=== PATIENT | female | born 1945 | race Native Hawaiian/Other Pacific Islander ===

== ENCOUNTER 2017-03-10 08:30 | Outpatient (CLI) | payer OTHER ==
[2017-03-10 10:04] LABS: PLATELET COUNT 242 K/uL (152-353)
[2017-03-10 11:58] LABS: POTASSIUM 4.2 mmol/L (3.6-5.2)
== END 2017-03-10 19:19 | disposition home or self-care (01) ==
LOC: LABW 08:30
PROVIDERS: Internal Medicine
DX: E11.9 Type 2 diabetes mellitus without complications (principal)
CPT/HCPCS: 36415; 80053; 80061; 81000; 82043; 82570; 83036; 84439; 84443; 85027

== ENCOUNTER 2017-07-08 10:02 | Outpatient (CLI) | payer OTHER | END 2017-07-08 11:05 | disposition home or self-care (01) | LOC: RAD 10:02 | DX: M81.0 Age-related osteoporosis without current pathological fracture (principal) ==

== ENCOUNTER → 2017-08-27 08:30 | Outpatient (CLI) | payer OTHER ==
[~2017-08-27 08:30] MED LIST: DICL75TA4 PO; EQ ASPIRIN LOW81 MG PO; GLIM4TAB PO; LEVO-T50 MCG PO; LOVASTATIN20 MG OR; NEURONTIN 100M100 MG OR; SM STOOL SOFTE PO; [UNRECOGNIZED DRUG - OTHER] OR
[2017-08-27 09:21] LABS: PLATELET COUNT 278 K/uL (152-353)
[2017-08-27 09:39] LABS: POTASSIUM 4.2 mmol/L (3.6-5.2)
== END | disposition home or self-care (01) ==
LOC: LABW 08:30
PROVIDERS: Internal Medicine
DX: E11.9 Type 2 diabetes mellitus without complications (principal); R82.99 Other abnormal findings in urine
CPT/HCPCS: 36415; 80053; 80061; 81000; 83036; 84443; 85027; 87077; 87086; 87088; 87186

== ENCOUNTER 2017-10-13 08:47 | Inpatient (IN) | payer OTHER ==
[~2017-10-13] VITALS: Ht 157.5 cm; Wt 70.1 kg
[2017-10-13 13:19] LABS: PLATELET COUNT 392 K/uL (152-353)
[2017-10-13 13:43] VITALS: BP 146/61; TEMP 98.6; Ht 157.5 cm; Wt 70.1 kg
[2017-10-13 13:44] LABS: POTASSIUM 4.1 mmol/L (3.6-5.2); SODIUM 131 mmol/L (136-145)
[2017-10-13] MEDS ORDERED: EQ ASPIRIN LOW81 MG PO (14:48)
[2017-10-13] MEDS ORDERED: NEURONTIN 100M100 MG OR (14:50)
[2017-10-13] MEDS ORDERED: LEVO-T50 MCG PO (14:50)
[2017-10-13] MEDS ORDERED: GLIM4TAB PO (14:52)
[2017-10-13] MEDS ORDERED: LOVASTATIN20 MG OR (14:53)
[2017-10-13] MEDS ORDERED: DICL75TA4 PO (14:54)
[2017-10-13] MEDS ORDERED: [UNRECOGNIZED DRUG - OTHER] OR (14:55)
[2017-10-13] MEDS ORDERED: SM STOOL SOFTE PO (14:56)
[2017-10-13 16:00] VITALS: BP 132/56; TEMP 99.7
[2017-10-13 20:00] VITALS: BP 119/41; TEMP 99.1
[2017-10-14] VITALS (19 sets, daily range): BP systolic 119–181; BP diastolic 43–89; TEMP 98.1–98.8
[2017-10-14 08:30] LABS: PLATELET COUNT 383 K/uL (152-353)
[2017-10-15] VITALS (24 sets, daily range): BP systolic 122–172; BP diastolic 49–87; TEMP 97.7–99
[2017-10-15 05:02] LABS: PLATELET COUNT 375 K/uL (152-353)
[2017-10-15 05:15] LABS: POTASSIUM 4.9 mmol/L (3.6-5.2)
[2017-10-16] VITALS (19 sets, daily range): BP systolic 128–186; BP diastolic 63–96; TEMP 98–99
[2017-10-16 06:11] LABS: PLATELET COUNT 337 K/uL (152-353)
[2017-10-16 06:38] LABS: POTASSIUM 4.1 mmol/L (3.6-5.2)
[2017-10-17] VITALS (7 sets, daily range): BP systolic 139–170; BP diastolic 59–83; TEMP 97.9–98.2
[2017-10-17 08:09] LABS: PLATELET COUNT 302 K/uL (152-353)
[2017-10-17 09:03] LABS: POTASSIUM 3.7 mmol/L (3.6-5.2)
[2017-10-18 00:07] VITALS: BP 146/53; TEMP 98.1
[2017-10-18 05:01] LABS: PLATELET COUNT 330 K/uL (152-353)
[2017-10-18 05:30] LABS: POTASSIUM 3.5 mmol/L (3.6-5.2)
[2017-10-18 08:00] VITALS: BP 154/70; TEMP 98.2
[2017-10-18 12:00] VITALS: BP 140/61; TEMP 98
[2017-10-18 16:00] VITALS: BP 146/74; TEMP 99
[2017-10-18 20:00] VITALS: BP 140/59; TEMP 98.9
[2017-10-19] VITALS: BP 157/68; TEMP 98
[2017-10-19 04:00] VITALS: BP 158/72; TEMP 98.7
[2017-10-19 08:36] VITALS: BP 154/69; TEMP 98
[2017-10-19 12:00] VITALS: BP 154/70; TEMP 98.3
[2017-10-19 16:00] VITALS: BP 127/56; TEMP 98
== END 2017-10-19 17:15 | disposition home or self-care (01) | DRG 415 ==
LOC: US 08:47 → MED/SURG 11:33 → UNDODEPCLI 21:30 → ICU 10-14 15:00 → MED/SURG 10-17 10:30
PROVIDERS: ADMIT Internal Medicine
PROC: 0FT40ZZ Resection of Gallbladder, Open Approach (ICD-10-PCS; principal; 2017-10-14)
DX: K81.0 Acute cholecystitis (principal); E87.2 Acidosis; E11.42 Type 2 diabetes mellitus with diabetic polyneuropathy; K21.9 Gastro-esophageal reflux disease without esophagitis; E03.8 Other specified hypothyroidism; E86.0 Dehydration; M15.8 Other polyosteoarthritis; K44.9 Diaphragmatic hernia without obstruction or gangrene; E88.09 Other disorders of plasma-protein metabolism, not elsewhere classified; E87.6 Hypokalemia; I10 Essential (primary) hypertension
CPT/HCPCS: 36415; 80048; 80053; 81000; 82150; 82550; 82948; 82962; 83690; 83735; 84100; 84134; 84484; 85027; 87070; 87077; 87186; 87205; 93005; 94760; 96366; 96367; 96372; C1729; J0132; J0295; J0330; J1100; J1170; J1644; J2001; J2250; J2270; J2405; J2704; J2710; J3010; J3490; S0028